=== PATIENT | female | born 1985 | race Asian ===

== ENCOUNTER → 2018-08-08 | Outpatient (CLI) | payer OTHER | LOC: FIMAGING 14:09 | PROVIDERS: ATTEND Obstetrics & Gynecology | DX: O09.521 Supervision of elderly multigravida, first trimester (principal); O09.291 Supervision of pregnancy with other poor reproductive or obstetric history, first trimester; O24.111 Pre-existing type 2 diabetes mellitus, in pregnancy, first trimester; E11.9 Type 2 diabetes mellitus without complications; Z3A.12 12 weeks gestation of pregnancy ==

== ENCOUNTER → 2018-09-25 | Outpatient (CLI) | payer OTHER | LOC: FIMAGING 07:29 | PROVIDERS: ATTEND Obstetrics & Gynecology | DX: O24.112 Pre-existing type 2 diabetes mellitus, in pregnancy, second trimester (principal); Z3A.19 19 weeks gestation of pregnancy; Z98.891 History of uterine scar from previous surgery ==

== ENCOUNTER → 2018-10-31 | Outpatient (CLI) | payer OTHER | LOC: FIMAGING 13:29 | PROVIDERS: ATTEND Obstetrics & Gynecology | DX: O24.419 Gestational diabetes mellitus in pregnancy, unspecified control (principal); O43.892 Other placental disorders, second trimester; Z3A.24 24 weeks gestation of pregnancy ==

== ENCOUNTER → 2018-12-05 | Outpatient (CLI) | payer OTHER | LOC: FIMAGING 08:13 | PROVIDERS: ATTEND Obstetrics & Gynecology | DX: O24.113 Pre-existing type 2 diabetes mellitus, in pregnancy, third trimester (principal); Z3A.29 29 weeks gestation of pregnancy ==